=== PATIENT | female | born 1960 | race Caucasian/White ===

== ENCOUNTER 2022-02-19 13:09 | Outpatient (CLI) | payer OTHER, SELFPAY ==
--- NOTE | ~2022-02-19 | US_ITS ---
EXAMINATION: US pelvic complete w TV DATE: 02/19/2022 14:17 INDICATION: Pelvic and perineal pain. TECHNIQUE: Multiple transabdominal and transvaginal sonographic images of the pelvis were obtained. COMPARISON: Ultrasound pelvis 08/10/2018 FINDINGS: TRANSABDOMINAL ULTRASOUND: The uterus is absent. The left ovary measures 2.6 x 2.0 x 1.7 cm. There is normal vascular flow in le ft ovary. There is no free fluid in the pelvis. TRANSVAGINAL ULTRASOUND: There are small cysts in the vaginal cuff. The right ovary is not visualized. IMPRESSION: 1. Absent uterus. Right ovary not visualized. 2. Normal left ovary. Reviewed, dictated and finalized at location A.
== END 2022-02-19 13:10 | disposition home or self-care (01) ==
LOC: ANHIMG 13:15
PROVIDERS: Visit Provider Obstetrics & Gynecology
DX: R10.2 Pelvic and perineal pain (principal)
CPT/HCPCS: 76830; 76856